=== PATIENT | male | born 1950 | race African-American/Black ===

== ENCOUNTER 2019-04-04 18:26 | Emergency (ER) | payer OTHER ==
[~2019-04-04] VITALS: Ht 177.8 cm; Wt 80.0 kg
[2019-04-04 18:34] VITALS: BP 125/88
== END 2019-04-05 02:00 | disposition left against medical advice (07) ==
LOC: EDBD 18:26 → ER 18:26
DX: Z53.21 Procedure and treatment not carried out due to patient leaving prior to being seen by health care provider (principal)

== ENCOUNTER 2019-04-05 02:38 | Emergency (ER) | payer OTHER ==
[~2019-04-05] VITALS: Ht 175.3 cm; Wt 77.0 kg
[2019-04-05 07:23] LABS: HEMOGLOBIN. 12.9 g/dL (14.0-18.0); MEAN CORPUSCULAR HEMOGLOBIN 28.7 pg (28.0-32.0); MEAN PLATELET VOLUME 10.4 fl (7.4-10.4); PLATELET 172 x1000/uL (130-400); RED BLOOD CELL COUNT 4.49 mill/uL (4.7-6.1); RED CELL DISTRIBUTION WIDTH 13.8 % (11.6-14.6)
[2019-04-05 07:27] LABS: CHLORIDE 103 mEq/L (98-107)
[2019-04-05 07:37] LABS: CREATINE KINASE 780 IU/L (39-308)
[2019-04-05 08:15] LABS: ATYPICAL LYMPHOCYTES 1; PLATELET ESTIMATE NORMAL
[2019-04-05] MEDS ORDERED: ACETAMINOPHEN 650MG/20.3ML UDC PO ONE (08:30)
[2019-04-05 10:03] LABS: CLARITY URINE CLEAR (CLEAR); COLOR URINE YELLOW (YELLOW); KETONES URINE TRACE (NEGATIVE); LEUKOCYTE ESTERASE URINE NEGATIVE (NEGATIVE); NITRITE URINE NEGATIVE (NEGATIVE); OCCULT BLOOD URINE NEGATIVE (NEGATIVE); PH URINE 5.5 (4.5-8.0); PROTEIN URINE TRACE (NEGATIVE)
[2019-04-05 10:45] VITALS: BP 122/69
== END 2019-04-05 10:58 | disposition home or self-care (01) ==
LOC: ER 02:38
DX: S30.860A Insect bite (nonvenomous) of lower back and pelvis, initial encounter (principal); M79.10 Myalgia, unspecified site; F15.10 Other stimulant abuse, uncomplicated; J44.9 Chronic obstructive pulmonary disease, unspecified; I10 Essential (primary) hypertension; Z88.0 Allergy status to penicillin; W57.XXXA Bitten or stung by nonvenomous insect and other nonvenomous arthropods, initial encounter; Y93.89 Activity, other specified; Y92.018 Other place in single-family (private) house as the place of occurrence of the external cause
CPT/HCPCS: 36415; 71045; 80053; 81003; 82550; 85025; 93005; 99284